=== PATIENT | female | born 1990 | race American Indian/Alaskan Native ===

== ENCOUNTER 2019-09-22 21:58 | Emergency (ER) | payer OTHER ==
[2019-09-22 22:55] VITALS: BP 135/82
[2019-09-23] MEDS ORDERED: BUTALB/ACETAMINOPHEN/CAFFEINE TAB PO ONE (01:25)
[2019-09-23] MEDS ORDERED: ONDANSETRON 4 MG/2 ML INJ IM ONE (01:25)
[2019-09-23] MEDS ORDERED: fentaNYL 100 MCG/2 ML INJ IM ONE (01:25)
--- NOTE | 2019-09-23 01:32 | Emergency Department Report ---
HPI - General Chief Complaint: Headache Time Seen by Provider: 09/23/19 01:18 - [facility] HPI: Room 44 The patient is a 29-year-old female present with a chief complaint of headache. Patient has a history of migraines and hypertension and states she has had a headache for the past 2 weeks. Patient states the headache is at her frontal and occipital region. Patient states once at work she became dizzy. Patient denies any preceding trauma or nausea/vomiting. Patient states Tylenol helps her headache somewhat but never completely resolves. Patient currently gives her pain a score of 10/10. The patient did not drive herself to the emergency department ED Past Medical Hx - Past Medical History Previous Medical History?: Yes Hx Hypertension: Yes Hx Headaches / Migraines: Yes Additional medical history: Obesity - Surgical History Past Surgical History?: Yes Additional Surgical History: Tonsils, adennoids, Arnold-Chiari malformation, Tubal Ligation - Family History Family history: no significant - Social History Smoking Status: Never Smoker Substance Use Type: None - Medications Home Medications: Home Medications Medication Instructions Recorded Confirmed Last Taken Type Butalb/Acetamin/Caff 50-325-40 2 tab PO Q8HR PRN #20 tablet 09/23/19 Unknown Rx [Fioricet 50-325-40] ED Review of Systems ROS: Stated complaint: DIZZINESS,HEADACHE,FEVER Other details as noted in HPI Constitutional: no symptoms reported Respiratory: no symptoms reported Endocrine: no symptoms reported Gastrointestinal: denies: nausea, vomiting Neurological: headache, other (Dizziness) Physical Exam - Physical Exam Vital Signs: Vital Signs 09/22/19 22:53 Temperature 98.4 F Pulse Rate 76 Respiratory 20 Rate Blood Pressure 135/82 O2 Sat by Pulse 100 Oximetry Physical Exam: GENERAL: The patient is well-developed well-nourished female lying in chair not appearing to be in acute distress. [] HEENT: Normocephalic. Atraumatic. Extraocular motions are intact. Patient has moist mucous membranes. NECK: Supple. No meningitic signs are noted. No nuchal rigidity CHEST/LUNGS: Clear to auscultation. There is no respiratory distress noted. HEART/CARDIOVASCULAR: Regular. There is no tachycardia. There is no gallop rub or murmur. ABDOMEN: Abdomen is soft, nontender. Patient has normal bowel sounds. There is no abdominal distention. SKIN: There is no rash. There is no edema. There is no diaphoresis. NEURO: The patient is awake, alert, and oriented. The patient is cooperative. The patient has no focal neurologic deficits. The patient has normal speech. Cranial nerves II through XII grossly intact MUSCULOSKELETAL: There is no evidence of acute injury. ED Course Vital Signs 09/22/19 22:53 Temperature 98.4 F Pulse Rate 76 Respiratory 20 Rate Blood Pressure 135/82 O2 Sat by Pulse 100 Oximetry ED Medical Decision Making - Radiology Data Radiology results: report reviewed (CT head), image reviewed (CT head) Findings [facility] [address] [place] [address] Cat Scan Report Signed Patient: ANDI HERR MR#: [id number] : 1990 Acct:[id number] Age/Sex: 29 / F ADM Date: 09/22/19 Loc: ED Attending Dr: Ordering Physician: GUSTABO MORALES MD Date of Service: 09/23/19 Procedure(s): CT head/brain wo con Accession Number(s): [id number] cc: GUSTABO MORALES MD CT head without contrast INDICATION : Headache with dizziness. TECHNIQUE: Axial imaging performed from the skull apex through the skull base without the use of contrast. All CT examinations performed at this facility utilize dose modulation, iterative reconstruction or weight-based dosing, when appropriate, to reduce radiation dose to as low as reasonably achievable. COMPARISON: None FINDINGS: No acute intracranial hemorrhage or parenchymal abnormality. Ventricles are normal in size and appear symmetric. The cerebellar tonsils appear low and the foramen magnum. Soft tissues including the orbits appear normal. No acute osseous abnormality. Sinuses and mastoid air cells are clear. IMPRESSION: Chiari I malformation. No acute intracranial hemorrhage. No significant hydrocephalus Signer Name: Roger Lopez MD Signed: 09/23/2019 1:48 AM Workstation Name: [id number] Transcribed By: Dictated By: Roger Lopez MD Electronically Authenticated By: Roger Lopez MD Signed Date/Time: 09/23/19147 DD/ 3 TD/TT: - Differential Diagnosis Headache, intracranial mass Critical care attestation.: If time is entered above; I have spent that time in minutes in the direct care of this critically ill patient, excluding procedure time. ED Disposition Clinical Impression: Headache, Chiari malformation type I Disposition: DC-01 TO HOME OR SELFCARE Is pt being admited?: No Does the pt Need Aspirin: No Condition: Stable Instructions: Acute Headache (ED) Additional Instructions: Return to the emergency department should you develop worsening symptoms, inability to tolerate food or liquids, high fever or any other concerns Prescriptions: Butalb/Acetamin/Caff 50-325-40 [Fioricet 50-325-40] 2 tab PO Q8HR PRN #20 tablet PRN Reason: Headache Referrals: PRIMARY CAREMD [Primary Care Provider] - 3-5 Days ENRRIQUE HUSAIN MD [Staff Physician] - 3-5 Days (Dr. Husain is a neurologist. Please follow-up with him for further evaluation) Time of Disposition: 01:58
--- NOTE | 2019-09-23 01:52 | Cat Scan Report ---
CT head without contrast INDICATION : Headache with dizziness. TECHNIQUE: Axial imaging performed from the skull apex through the skull base without the use of con trast. All CT examinations performed at this facility utilize dose modulation, iterative reconstruct ion or weight-based dosing, when appropriate, to reduce radiation dose to as low as reasonably achiev able. COMPARISON: None FINDINGS: No acute intracranial hemorrhage or parenchymal abnormality. Ventricles are normal in si ze and appear symmetric. The cerebellar tonsils appear low and the foramen magnum. Soft tissues incl uding the orbits appear normal. No acute osseous abnormality. Sinuses and mastoid air cells are c lear. IMPRESSION: Chiari I malformation. No acute intracranial hemorrhage. No significant hydrocephalus Signer Name: Roger Lopez MD Signed: 09/23/2019 1:48 AM Workstation Name: [id number]
== END 2019-09-23 03:00 | disposition home or self-care (01) ==
LOC: ED 21:58
DX: G93.5 Compression of brain (principal); R51 Headache; I10 Essential (primary) hypertension; G43.909 Migraine, unspecified, not intractable, without status migrainosus; Z98.51 Tubal ligation status; Z90.79 Acquired absence of other genital organ(s); Z88.6 Allergy status to analgesic agent
CPT/HCPCS: 70450; 96372; 99283; J2405; J3010